=== PATIENT | female | born 1940 | race Caucasian/White ===

== ENCOUNTER 2023-05-02 07:38 | Day surgery (SDC) | payer MEDICARE ==
[~2023-05-02] VITALS: Ht 162.6 cm; Wt 79.8 kg
[~2023-05-02 07:38] MED LIST: BAYER ASPIRIN E81 MG PO; CITALOPRAM20 MG PO; FLEXERIL5 M1 PO; NORVASC PO; OMEPRAZOLE20 MG PO; ROSUVASTATIN CAL5 MG PO
[2023-05-02] MEDS ORDERED: FAMOTIDINE 10MG/ML 2ML SDV IV ONE (08:14)
[2023-05-02] MEDS ORDERED: LACTATED RINGER'S 1,000 ML IV ONE (08:14)
[2023-05-02 10:06] VITALS: BP 162/88
[2023-05-02] MEDS ORDERED: LIDOCAINE HCL 2% 2ML SDV IV ONE (16:42)
[2023-05-02] MEDS ORDERED: PROPOFOL 500 MG/50 ML VIAL IV ONE (16:42)
== END 2023-05-02 10:27 | disposition home or self-care (01) ==
LOC: ENDO 07:38 → ORM 10:45
PROVIDERS: ATTEND Surgery
PROC: 0DBK8ZX Excision of Ascending Colon, Via Natural or Artificial Opening Endoscopic, Diagnostic (ICD-10-PCS; principal; 2023-05-02)
PROC: 0DBM8ZX Excision of Descending Colon, Via Natural or Artificial Opening Endoscopic, Diagnostic (ICD-10-PCS; 2023-05-02)
PROC: 0DB98ZX Excision of Duodenum, Via Natural or Artificial Opening Endoscopic, Diagnostic (ICD-10-PCS; 2023-05-02)
PROC: 0DB68ZX Excision of Stomach, Via Natural or Artificial Opening Endoscopic, Diagnostic (ICD-10-PCS; 2023-05-02)
DX: D12.2 Benign neoplasm of ascending colon (principal); D12.3 Benign neoplasm of transverse colon; D17.5 Benign lipomatous neoplasm of intra-abdominal organs; K64.4 Residual hemorrhoidal skin tags; K64.8 Other hemorrhoids; K31.7 Polyp of stomach and duodenum; K44.9 Diaphragmatic hernia without obstruction or gangrene; Z86.010 Personal history of colon polyps

== ENCOUNTER 2023-11-27 21:38 | Emergency (ER) | payer MEDICARE ==
[~2023-11-27] VITALS: Ht 162.6 cm; Wt 83.0 kg
[2023-11-27] MEDS ORDERED: ACETAMINOPHEN 500 MG TAB PO ONE (22:05)
[2023-11-27] MEDS ORDERED: SODIUM CHLORIDE 0.9% 1,000 ML IV ONE (22:05)
[2023-11-27] MEDS ORDERED: ASPIRIN 81 MG/TAB PO ONE (22:05)
[2023-11-27 22:44] VITALS: BP 148/69
[2023-11-27 22:45] VITALS: BP 148/91
[2023-11-27 22:50] LABS: BASO% 0.3 % (0-3); EOS% 1.3 % (0-8); HEMATOCRIT 38.1 % (37.0-47.0); HEMOGLOBIN 12.3 g/dl (12.0-16.0); IMMATURE GRANULOCYTES 0.2 % (0.0-5.0); MEAN CELL VOLUME 90.3 fL CALC (80.0-100.0); MEAN CORPUSCULAR HGB 29.1 pG CALC (26.0-32.0); MEAN CORPUSCULAR HGB CONC 32.3 g/dL CAL (32.0-36.0); NEUT# 8.38 thou/uL (2.00-7.15); NEUT% 70.2 % (42-76); RED BLOOD COUNT 4.22 mill/uL (4.20-5.60); RED CELL DISTRI WIDTH 13.2 % (11.5-15.5)
[2023-11-27 22:53] LABS: URINE BILIRUBIN - DIPSTICK Negative (NEGATIVE); URINE BLOOD DIPSTICK Trace-intact (NEGATIVE); URINE GLUCOSE - DIPSTICK Negative (NEGATIVE); URINE KETONE Negative (NEGATIVE); URINE NITRITE - DIPSTICK Negative (Negative); URINE PROTEIN - DIPSTICK Negative (NEG-TRACE); URINE UROBILINOGEN - DIPSTICK 0.2 E.U./dL (0.2)
[2023-11-27 22:54] LABS: URINE COLOR Yellow; URINE LEUK ESTERASE Small (NEGATIVE)
[2023-11-27 22:58] LABS: URINE SQUAMOUS EPITHELIAL CELL MODERATE EPI/hpf (0-FEW)
[2023-11-27 23:00] VITALS: BP 165/88
[2023-11-27] MEDS ORDERED: DILTIAZEM HCL 25 MG/5 ML SDV IV ONE (23:00)
[2023-11-27 23:06] LABS: ALBUMIN 4.5 g/dL (3.2-5.0); ALKALINE PHOSPHATASE 46 u/l (38-126); ANION GAP 8 (6-22 (CALC)); BILIRUBIN, TOTAL 0.6 mg/dL (0.02-1.3); CARBON DIOXIDE 30 mmol/l (22-30); CHLORIDE 104 mmol/l (95-108); POTASSIUM 3.4 mmol/l (3.5-5.1); SGOT/AST 29 u/l (9-36); SODIUM 139 mmol/l (137-146); TOTAL PROTEIN 7.4 g/dL (6.3-8.2)
[2023-11-27 23:15] VITALS: BP 164/84
[2023-11-27 23:18] LABS: BUN 17 mg/dL (8-23); BUN/CREATININE RATIO 18 (12-20 (CALC)); ESTIMATED GFR 57 ML/MIN (>=90 (CALC))
[2023-11-27 23:31] VITALS: BP 155/64
[2023-11-27 23:42] LABS: TSH, 3RD GENERATION 1.8 uIU/mL (0.47 - 4.68)
[2023-11-27 23:46] VITALS: BP 141/66
[2023-11-27] MEDS ORDERED: CARDIZEM CD240 MG PO (23:52)
[2023-11-27] MEDS ORDERED: dilTIAZem HCl COATED BEADS 240 MG/CAP PO ONE (23:55)
[2023-11-28] VITALS: BP 145/81
== END 2023-11-28 00:19 | disposition home or self-care (01) ==
LOC: ED 21:38
PROVIDERS: Family Medicine
DX: I48.20 Chronic atrial fibrillation, unspecified (principal); I10 Essential (primary) hypertension; K21.9 Gastro-esophageal reflux disease without esophagitis; Z20.822 Contact with and (suspected) exposure to COVID-19